=== PATIENT | male | born 1960 | race Caucasian/White ===

== ENCOUNTER 2018-07-07 08:13 | Emergency (ER) | payer MEDICARE ==
[2018-07-07 08:38] VITALS: BP 130/42
[2018-07-07] MEDS ORDERED: Ondansetron 4 MG Tab.DIS PO ONE (09:38)
[2018-07-07] MEDS ORDERED: Ketorolac 30 MG/ML SDV IM ONE (09:38)
[2018-07-07] MEDS ORDERED: HYDROmorphone 1 MG/ML Syringe IM ONE (09:38)
--- NOTE | 2018-07-07 12:42 | EDM.PDOC ---
ED HPI GENERAL MEDICAL PROBLEM - General Chief Complaint: Abdominal Pain Stated Complaint: Bad stomach pain, side pain Time Seen by Provider: 07/07/18 09:32 Source of Information: Reports: Patient History Limitations: Reports: No Limitations - History of Present Illness INITIAL COMMENTS - FREE TEXT/NARRATIVE: 2 people and started on this patient comes in complaining of right-sided abdominal and right flank pain beginning suddenly at 2 AM. He is nauseated but has not vomited no history of kidney stones no history of gallstones Right Abdomen Pain Score (Numeric/FACES): 9 - Related Data Allergies Allergy/AdvReac Type Severity Reaction Status Date / Time cat dander Allergy Sneezing Verified 04/11/15 18:53 house dust Allergy Sneezing Verified 04/11/15 18:53 Home Meds: Home Meds Omeprazole 20 mg PO DAILY 04/27/15 [History] Past Medical History - Past Health History Medical/Surgical History: Denies Medical/Surgical History - Infectious Disease History Infectious Disease History: Reports: Chicken Pox - Past Surgical History Other HEENT Surgeries/Procedures: facial reconstructions Other Respiratory Surgeries/Procedures: "lost a lung I don't know which one" Other Musculoskeletal Surgeries/Procedures:: left arm Social & Family History - Tobacco Use Smoking Status *Q: Never Smoker - Caffeine Use Caffeine Use: Reports: Soda - Recreational Drug Use Recreational Drug Use: No ED ROS GENERAL - Review of Systems Review Of Systems: ROS reveals no pertinent complaints other than HPI. ED EXAM, RENAL/ - Physical Exam Exam: See Below Exam Limited By: No Limitations General Appearance: Alert, WD/WN, Mild Distress Eye Exam: Bilateral Eye: Normal Inspection Throat/Mouth: Normal Inspection Neck: Normal Inspection Respiratory/Chest: Lungs Clear Cardiovascular: Regular Rate, Rhythm, No Murmur GI/Abdominal: Soft, Other (Mild right lower quadrant tenderness palpable stool) (Male) Exam: Other Back Exam: CVA Tenderness (R) (Mild right CVA tenderness) Extremities: Normal Inspection Psychiatric: Normal Affect Skin Exam: Warm, Dry Course - Vital Signs Last Recorded V/S: Last Vital Signs Temp 35.6 C 07/07/18 08:38 Pulse 62 07/07/18 08:38 Resp 21 H 07/07/18 08:38 BP 130/42 L 07/07/18 08:38 Pulse Ox 97 07/07/18 08:38 - Orders/Labs/Meds Orders: Active Orders 24 hr Category Date Time Status Kidney Stone Protocol [CT] Stat Exams 07/07/18 11:31 Taken Labs: Laboratory Tests 07/07/18 07/07/18 07/07/18 Range/Units 09:45 09:50 09:50 WBC 8.2 (4.5-11.0) K/uL RBC 5.06 (4.30-5.90) M/uL Hgb 14.4 (12.0-15.0) g/dL Hct 41.4 (40.0-54.0) % MCV 82 (80-98) fL MCH 29 (27-31) pg MCHC 35 (32-36) % Plt Count 302 (150-400) K/uL Neut % (Auto) 84 H (36-66) % Lymph % (Auto) 9 L (24-44) % [place] % (Auto) 6 (2-6) % Eos % (Auto) 0 L (2-4) % Baso % (Auto) 0 (0-1) % Sodium 137 L (140-148) mmol/L Potassium 3.7 (3.6-5.2) mmol/L Chloride 101 (100-108) mmol/L Carbon Dioxide 27 (21-32) mmol/L Anion Gap 12.7 (5.0-14.0) mmol/L BUN 26 H (7-18) mg/dL Creatinine 1.5 H (0.8-1.3) mg/dL Est Cr Clr Drug Dosing 54.99 mL/min Estimated GFR (MDRD) 48 L (>60) Glucose 135 H (74-106) mg/dL Calcium 9.2 (8.5-10.1) mg/dL Total Bilirubin 0.3 D (0.2-1.0) mg/dL AST 30 D (15-37) U/L ALT 50 D (12-78) U/L Alkaline Phosphatase 72 (46-116) U/L Total Protein 7.5 (6.4-8.2) g/dL Albumin 3.5 (3.4-5.0) g/dL Globulin 4.0 H (2.3-3.5) g/dL Albumin/Globulin Ratio 0.9 L (1.2-2.2) Urine Color Yellow Urine Appearance Clear Urine pH 5.0 (4.5-8.0) Ur Specific [place] 1.020 (1.008-1.030) Urine Protein Trace (NEGATIVE) mg/dL Urine Glucose (UA) Normal (NEGATIVE) mg/dL Urine Ketones 15 H (NEGATIVE) mg/dL Urine Occult Blood Moderate (NEGATIVE) Urine Nitrite Negative (NEGAITVE) Urine Bilirubin Negative (NEGATIVE) Urine Urobilinogen Normal (NORMAL) mg/dL Ur Leukocyte Esterase Negative (NEGATIVE) Urine RBC 20-30 H (0-5) Urine WBC Not seen (0-5) Ur Epithelial Cells Not seen Amorphous Sediment Few Urine Bacteria Not seen Urine Mucus Not seen Meds: Medications Discontinued Medications Generic Name Dose Route Start Last Admin Trade Name Freq PRN Reason Stop Dose Admin Hydromorphone HCl 1 mg 07/07/18 09:38 07/07/18 09:45 Dilaudid IM 07/07/18 09:39 1 mg ONETIME ONE Administration Ketorolac Tromethamine 60 mg 07/07/18 09:38 07/07/18 09:45 Toradol IM 07/07/18 09:39 60 mg ONETIME ONE Administration Ondansetron HCl 4 mg 07/07/18 09:38 07/07/18 09:45 Zofran Odt PO 07/07/18 09:39 4 mg ONETIME ONE Administration - Radiology Interpretation Free Text/Narrative:: CT showed a 3 mm stone at the right uretero-vesicle junction. This is obstructing. 4 mm nodule in the lung as noted. - Re-Assessments/Exams Free Text/Narrative Re-Assessment/Exam: 07/07/18 12:48 This patient RE you received discharge instructions but I told him about the 4 mm nodule gave him a copy of the radiology report that wasn't back at the time that I gave him his discharge papers. He'll follow up with his doctor decide if anything needs to be done about it. Note this is patient has never smoked although he does smoke marijuana time to time. Departure - Departure Time of Disposition: 12:41 Disposition: Home, Self-Care 01 Condition: Fair Clinical Impression: Ureterolithiasis - Discharge Information Referrals: Jose Luis Bates MD [Primary Care Provider] - Forms: ED Department Discharge Additional Instructions: If you continue to have pain take Percocet 5/325 one or 2 every 4 hours. For nausea he can use the Zofran 4 mg one or 2 sublingual every 8 hours. Percocet can cause sedation and impair driving and can be addicting. Strain all of your urine for the next couple days to see if a stone passes. - My Orders Last 24 Hours: My Active Orders 07/07/18 11:31 Kidney Stone Protocol [CT] Stat - Assessment/Plan Last 24 Hours: My Active Orders 07/07/18 11:31 Kidney Stone Protocol [CT] Stat
== END 2018-07-07 13:00 | disposition home or self-care (01) ==
LOC: JP.ED 08:13
DX: N13.2 Hydronephrosis with renal and ureteral calculous obstruction (principal); Z79.899 Other long term (current) drug therapy; Z91.09 Other allergy status, other than to drugs and biological substances
CPT/HCPCS: 36415; 74176; 80053; 81001; 85025; 96372; 99284; A9270; J1170; J1885

== ENCOUNTER 2020-05-11 21:38 | Emergency (ER) | payer MEDICARE ==
[2020-05-11 21:52] VITALS: BP 134/102; PULSE 94
--- NOTE | 2020-05-11 22:42 | EDM.PDOC ---
ED HPI GENERAL MEDICAL PROBLEM - General Chief Complaint: Skin Complaint Stated Complaint: RASH ON LOWER BACK AND LEGS Time Seen by Provider: 05/11/20 22:00 Source of Information: Reports: Patient History Limitations: Reports: No Limitations - History of Present Illness INITIAL COMMENTS - FREE TEXT/NARRATIVE: 59-year-old male that tweaked his back a week ago, was having some low back pain but over the past couple days the pain is spread down the buttock and right leg and he has developed a rash over the past 48 hours. No fevers or chills, he was concerned he may have obtained shingles. He has not had these in the past. Onset: Gradual Duration: Day(s): (Rash has developed over the last 2 days) Location: Reports: Back, Lower Extremity, Right Associated Symptoms: Reports: Malaise, Other (Low back pain). Denies: Fever/Chills, Shortness of Breath Right Leg Pain Score (Numeric/FACES): 4 - Related Data Allergies Allergy/AdvReac Type Severity Reaction Status Date / Time cat dander Allergy Sneezing Verified 05/11/20 22:06 house dust Allergy Sneezing Verified 05/11/20 22:06 Home Meds: Home Meds Omeprazole 20 mg PO DAILY 04/27/15 [History] Past Medical History - Past Health History Medical/Surgical History: Denies Medical/Surgical History Respiratory History: Reports: Other (See Below) Other Respiratory History: previous collapsed lung Musculoskeletal History: Reports: Fracture Neurological History: Reports: Brain Injury, Head Trauma Psychiatric History: Reports: Depression - Infectious Disease History Infectious Disease History: Reports: Chicken Pox - Past Surgical History Other HEENT Surgeries/Procedures: facial reconstructions Other Musculoskeletal Surgeries/Procedures:: left arm Social & Family History - Tobacco Use Tobacco Use Status *Q: Never Tobacco User - Caffeine Use Caffeine Use: Reports: Soda - Recreational Drug Use Recreational Drug Use: No ED ROS GENERAL - Review of Systems Review Of Systems: See Below Constitutional: Reports: Malaise. Denies: Fever, Chills HEENT: Reports: No Symptoms Respiratory: Denies: Shortness of Breath Cardiovascular: Denies: Chest Pain GI/Abdominal: Denies: Nausea, Vomiting Musculoskeletal: Reports: Back Pain Skin: Reports: Rash Neurological: Denies: Paresthesia Psychiatric: Reports: No Symptoms ED EXAM, SKIN/RASH Exam: See Below Exam Limited By: No Limitations General Appearance: Alert, No Apparent Distress Head: Atraumatic Respiratory/Chest: No Respiratory Distress, Lungs Clear Cardiovascular: Regular Rate, Rhythm Back Exam: Other (Patient has patchy vesicular rash starting in the right SI area across the buttock) Extremities: Other (Rash that starts on the buttock extends over the anterior aspect of the right thigh and medially) Neurological: Alert, Oriented Psychiatric: Normal Affect, Normal Mood Course - Vital Signs Last Recorded V/S: Last Vital Signs Temp 97.1 F 05/11/20 22:05 Pulse 94 05/11/20 22:05 Resp 16 05/11/20 22:05 BP 134/102 H 05/11/20 22:05 Pulse Ox 98 05/11/20 22:05 - Re-Assessments/Exams Free Text/Narrative Re-Assessment/Exam: 05/11/20 22:41 This is typical and classic right buttock and right thigh shingles. He will be started on 400 mg of acyclovir 5 times daily starting tonight, and was given 10 days worth of treatment. Anti-inflammatories may be helpful with discomfort, and he can recheck in 2 to 3 days if not improving. Departure - Departure Time of Disposition: 22:51 Disposition: Home, Self-Care 01 Clinical Impression: Shingles Qualifiers: Herpes zoster complications: without complications Qualified Code(s): B02.9 - Zoster without complications - Discharge Information Instructions: Shingles Referrals: Jose Luis Bates MD [Primary Care Provider] - Forms: ED Department Discharge Care Plan Goals: Take 1 antiviral pill 5 times a day for at least 7 days and up to 10 days if needed. Cool compresses to rash areas may be helpful along with anti- inflammatories such as ibuprofen or naproxen. Consider rechecking in 2 to 3 days if not improving. Sepsis Event Note (ED) - Evaluation Sepsis Screening Result: No Definite Risk - Focused Exam Vital Signs: Vital Signs Temp Pulse Resp BP Pulse Ox 05/11/20 22:05 97.1 F 94 16 134/102 H 98 05/11/20 21:51 97.1 F 94 16 134/102 H 98
== END 2020-05-11 22:52 | disposition home or self-care (01) ==
LOC: JP.ED 21:38
DX: B02.9 Zoster without complications (principal); Z91.09 Other allergy status, other than to drugs and biological substances
CPT/HCPCS: 99283

== ENCOUNTER 2022-07-16 07:08 | Day surgery (SDC) | payer MEDICARE ==
[~2022-07-16 07:08] MED LIST: Bupivacaine 0.5% 50 ML MDV ONE; Lidocaine 1% with EPINEPHrine 1:100,000 50 ML MDV ONE; Midazolam 1 MG/ML 2 ML SDV ONE; Propofol 200 MG/20 ML SDV ONE; fentaNYL 100 MCG/2 ML SDV ONE
[2022-07-16] MEDS ORDERED: Dextrose 5%-Lactated Ringers 1,000 ML IV SCH (08:00)
[2022-07-16] MEDS ORDERED: Lidocaine 4% Top Soln 50 ML Bottle ONE (09:14)
[2022-07-16] MEDS ORDERED: Lidocaine 2% Viscous Solution 15 ML UD ONE (09:14)
[2022-07-16] MEDS ORDERED: Propofol 200 MG/20 ML SDV ONE ×2 (10:09→10:29)
[2022-07-16] MEDS ORDERED: Sodium Chloride 0.9% 10 ML ONE (10:33)
[2022-07-16] MEDS ORDERED: ceFAZolin 1 GM Vial ONE (10:33)
[2022-07-16] MEDS ORDERED: Lactated Ringers 1,000 ML ONE (10:36)
[2022-07-16 12:05] VITALS: BP 136/91; PULSE 50
== END 2022-07-16 12:18 | disposition home or self-care (01) ==
LOC: JP.SDS 07:08
PROVIDERS: ATTEND Surgery
DX: C96.9 Malignant neoplasm of lymphoid, hematopoietic and related tissue, unspecified (principal); K21.9 Gastro-esophageal reflux disease without esophagitis; F32.A Depression, unspecified; F17.200 Nicotine dependence, unspecified, uncomplicated; Z91.048 Other nonmedicinal substance allergy status; Z79.899 Other long term (current) drug therapy
CPT/HCPCS: 31525; 38510; 87015; 87070; 87077; 87102; 87116; 87186; 87205; 87206; 87220; A9270; J0690; J2250; J2704; J3010; J3490; J7120; J7121